=== PATIENT | male | born 1975 | race Hispanic/Latino ===

== ENCOUNTER → 2017-07-07 | Emergency (ER) | payer SELFPAY ==
[~2017-07-07] MED LIST: CYCLOBENZAPRINE HCL 10 MG TAB PO ONE
== END | disposition home or self-care (01) ==
LOC: FSED 11:05
DX: M54.5 Low back pain (principal); M62.830 Muscle spasm of back; R03.0 Elevated blood-pressure reading, without diagnosis of hypertension; F17.210 Nicotine dependence, cigarettes, uncomplicated
CPT/HCPCS: 99283